=== PATIENT | male | born 1940 | race Caucasian/White ===

== ENCOUNTER 2022-11-10 09:08 | Observation (INO) | payer MEDICARE ==
[2022-11-10 09:54] LABS: #Monocytes 0.7 10x3/uL (0.0-1.1); #Neutrophils 5.2 10x3/uL (1.5-8.4); %Basophils 0.3 % (0.0-2.0); %Eosinophils 0.3 % (0.0-6.0); %Lymphocytes 5.3 % (18.0-47.0); %Monocytes 10.7 % (0.0-10.0); %Neutrophils 82.9 % (40.0-75.0); Hemoglobin 9.8 g/dL (13.5-17.5); Mean Corpuscular Hemoglobin 21.4 pg (27.0-33.0); Mean Corpuscular Volume 71.2 fl (81.2-95.1); Mean Platelet Volume 9.9 fl (7.4-10.4); Platelet Count 238 10x3/uL (150-450); RBC Distribution Width 17.6 % (11.5-14.5); Red Blood Cell (RBC) Count 4.59 10x6/uL (4.32-5.72); White Blood Cell (WBC) Count 6.3 10x3/uL (3.5-10.5)
[2022-11-10] MEDS ORDERED: Thiamine HCl 200 MG/2 ML VIAL ONE (09:54)
[2022-11-10] MEDS ORDERED: Enoxaparin Sodium 100 MG/ML SYRINGE ONE (09:54)
[2022-11-10] MEDS ORDERED: Aspirin Chewable 81 MG TAB ONE (09:54)
[2022-11-10] MEDS ORDERED: Magnesium 2 GM/50 ML BAG (IN WATER) ONE (09:55)
[2022-11-10] MEDS ORDERED: Diltiazem 125 MG/25 ML ONE (09:55)
[2022-11-10] MEDS ORDERED: Furosemide 40 MG/4 ML VIAL ONE (09:55)
[2022-11-10] MEDS ORDERED: Folic Acid 1 MG TAB ONE (09:55)
[2022-11-10 10:06] LABS: INR-International Normal Ratio 1.2; PTT 28.1 sec (22.0-33.0); Prothrombin Time 12.8 sec (9.5-12.1)
[2022-11-10 10:11] LABS: ALT (SGPT) 78 U/L (8-55); AST (SGOT) 111 U/L (5-34); Albumin 3.7 g/dL (3.4-4.8); Alkaline Phosphatase 134 U/L (40-110); Anion Gap 16 mmol/L (10-20); BUN (Urea Nitrogen) 13 mg/dL (8.4-25.7); Bilirubin, Total 2.3 mg/dL (0.2-1.2); CK (CPK) 677 U/L (30-200); Calc. Creatinine Clearance 0 mL/min (70-130); Calcium 8.7 mg/dL (7.8-10.44); Carbon Dioxide 26 mmol/L (23-31); Chloride 98 mmol/L (98-107); Estimated GFR 89; Globulin 3.1 g/dL (2.4-3.5); Glucose 122 mg/dL (83-110); Lipase 19 U/L (8-78); Magnesium 1.5 mg/dL (1.6-2.6); Potassium 3.2 mmol/L (3.5-5.1); Protein, Total 6.8 g/dL (5.8-8.1); Sodium 137 mmol/L (136-145)
[2022-11-10] MEDS ORDERED: Oseltamivir 75 MG CAP PO SCH (10:30)
[2022-11-10] MEDS ORDERED: Lorazepam 2 MG/ML VIAL IM PRN (11:01)
[2022-11-10] MEDS ORDERED: Ondansetron ODT 4 MG TAB PO PRN (11:01)
[2022-11-10] MEDS ORDERED: Lorazepam 1 MG TAB PO PRN (11:01)
[2022-11-10] MEDS ORDERED: Acetaminophen 325 MG TAB PO PRN (11:02)
[2022-11-10] MEDS ORDERED: Ondansetron PF 4 MG/2 ML Vial IVP PRN (11:02)
[2022-11-10] MEDS ORDERED: Guaifenesin DM 100-10/5 ML UDCUP PO PRN (11:02)
[2022-11-10] MEDS ORDERED: Electrolyte Replacement Protocol 1 EACH FS SCH (11:15)
[2022-11-10] MEDS ORDERED: Diltiazem 125 MG in Sodium Chloride 0.9% 100 ML IVPB SCH (11:15)
[2022-11-10] MEDS ORDERED: Furosemide 20 MG/2 ML VIAL SLOW IVP SCH (12:15)
[2022-11-10] MEDS ORDERED: Potassium Chloride 20 MEQ TAB PO SCH ×2 (12:30→17:00)
[2022-11-10 13:07] LABS: Troponin I 0.013 ng/mL (< 0.028)
[2022-11-10 16:14] LABS: Troponin I 0.014 ng/mL (< 0.028)
[2022-11-10] MEDS: Lorazepam 1 MG TAB PO SCH ×3 (16:22→23:05)
[2022-11-10 16:46] VITALS: BMI 30.8
[2022-11-10] MEDS ORDERED: Magnesium 2 GM/50 ML(in water) 2 GM in Premix Bag 1 BAG IVPB SCH (17:00)
[2022-11-10 18:40] LABS: Bilirubin Neg (Negative); Blood, Urine 10 (Negative); Clarity Clear (Clear); Glucose, Urine (Dipstick) Normal (Negative); Ketone, Urine Negative (Negative); Leukocyte Negative (Negative); Nitrite Negative (Negative); Protein, Urine (Dipstick) 15 mg/dl (Neg-Trace); pH, Urine 6.5 (5.0-9.0)
[2022-11-10 18:51] LABS: Bacteria/HPF 1+ HPF (None Seen); RBC/HPF 0-3 HPF (0-3); Squamous Epithelial 0-3 HPF (0-3); WBC/HPF 0-3 HPF (0-3)
[2022-11-10] MEDS: Oseltamivir 75 MG CAP PO SCH (21:28)
[2022-11-10] MEDS: Famotidine 20 MG TAB PO SCH (21:29)
[2022-11-10] MEDS: Apixaban 5 MG TAB PO SCH (21:29)
[2022-11-11 05:14] LABS: #Monocytes 0.7 10x3/uL (0.0-1.1); #Neutrophils 3.5 10x3/uL (1.5-8.4); %Basophils 0.4 % (0.0-2.0); %Eosinophils 0.4 % (0.0-6.0); %Lymphocytes 16.1 % (18.0-47.0); %Monocytes 13.1 % (0.0-10.0); %Neutrophils 69.4 % (40.0-75.0); Hemoglobin 9.7 g/dL (13.5-17.5); Mean Corpuscular HGB CONC 30.4 g/dL (32.0-36.0); Mean Corpuscular Hemoglobin 21.5 pg (27.0-33.0); Mean Corpuscular Volume 70.6 fl (81.2-95.1); Mean Platelet Volume 9.8 fl (7.4-10.4); Platelet Count 234 10x3/uL (150-450); RBC Distribution Width 17.6 % (11.5-14.5); Red Blood Cell (RBC) Count 4.52 10x6/uL (4.32-5.72)
[2022-11-11 05:30] LABS: Anion Gap 14 mmol/L (10-20); BUN (Urea Nitrogen) 14 mg/dL (8.4-25.7); Calc. Creatinine Clearance 105 mL/min (70-130); Calcium 8.6 mg/dL (7.8-10.44); Carbon Dioxide 28 mmol/L (23-31); Chloride 95 mmol/L (98-107); Estimated GFR 88; Glucose 101 mg/dL (83-110); Magnesium 2.1 mg/dL (1.6-2.6); Potassium 2.9 mmol/L (3.5-5.1); Sodium 134 mmol/L (136-145)
[2022-11-11] MEDS: Lorazepam 1 MG TAB PO SCH ×2 (06:07→11:19)
[2022-11-11] MEDS: Potassium Chloride 20 MEQ TAB PO SCH ×2 (06:08→09:33)
[2022-11-11] MEDS ORDERED: Folic Acid 1 MG TAB PO SCH (09:00)
[2022-11-11] MEDS ORDERED: Multivit, Therapeutic 1 TAB PO SCH (09:00)
[2022-11-11] MEDS ORDERED: Amlodipine 5 MG TAB PO SCH (09:00)
[2022-11-11] MEDS ORDERED: Aspirin 81 mg Enteric Coated Tablet PO SCH (09:00)
[2022-11-11] MEDS ORDERED: Hydrochlorothiazide 25 MG TAB PO SCH (09:00)
[2022-11-11] MEDS ORDERED: Magnesium Oxide 400 MG TAB PO SCH (09:00)
[2022-11-11] MEDS: Oseltamivir 75 MG CAP PO SCH (09:32)
[2022-11-11] MEDS: Famotidine 20 MG TAB PO SCH (09:33)
[2022-11-11] MEDS: Apixaban 5 MG TAB PO SCH (09:33)
[2022-11-11] MEDS ORDERED: Thiamine HCl 200 MG/2 ML VIAL SLOW IVP SCH (10:00)
[2022-11-11] MEDS ORDERED: Lorazepam 1 MG TAB PO PRN (11:01)
[2022-11-11 16:53] VITALS: BP 119/75; TEMP 98.8
[2022-11-12] MEDS ORDERED: Lorazepam 1 MG TAB PO PRN (11:01)
[2022-11-12] MEDS ORDERED: Lorazepam 0.5 MG TAB PO SCH (11:15)
[2022-11-13] MEDS ORDERED: Lorazepam 0.5 MG TAB PO PRN (11:01)
[2022-11-14] MEDS ORDERED: Thiamine 100 MG TAB PO SCH (09:00)
== END 2022-11-11 17:20 | disposition home or self-care (01) ==
LOC: CSHERS 09:08 → SUATTDRO 09:08 → CSHTELE 14:59
PROVIDERS: ADMIT Internal Medicine; ATTEND Family Medicine
DX: I48.91 Unspecified atrial fibrillation (principal); J11.1 Influenza due to unidentified influenza virus with other respiratory manifestations; D50.9 Iron deficiency anemia, unspecified; I25.10 Atherosclerotic heart disease of native coronary artery without angina pectoris; I10 Essential (primary) hypertension; R79.89 Other specified abnormal findings of blood chemistry; E78.5 Hyperlipidemia, unspecified; F10.20 Alcohol dependence, uncomplicated; Z79.82 Long term (current) use of aspirin; Z79.899 Other long term (current) drug therapy; Z87.891 Personal history of nicotine dependence; Z88.8 Allergy status to other drugs, medicaments and biological substances
CPT/HCPCS: 71045; 80048; 82550; 83605; 83690; 83735 ×2; 83880; 84484 ×2; 85025; 85610; 85730; 93005; 94640 ×3; 94760; 96365; 96366 ×3; 96372; 96375; 96376 ×3; 99285; G0378 ×3; 36415; 80053; 81003; 81015; 84443; J1650; J1940; J3411; J3475; J7620